=== PATIENT | male | born 1985 | race Caucasian/White ===

== ENCOUNTER 2022-10-27 18:58 | Emergency (ER) | payer SELFPAY ==
[2022-10-27 19:05] VITALS: BP 134/80; PULSE 85; RESP 16; TEMP 37; O2SAT 100
--- NOTE | 2022-10-27 19:25 | ED.HEATRA ---
HPI - Head Injury General Chief complaint: Head Injury Stated complaint: Wound on head Source: patient and RN notes reviewed Mode of arrival: ambulatory Limitations: no limitations History of Present Illness HPI Narrative: 37-year-old male presented for complaint of laceration to the scalp after injury today work. States the injury occurred about 8 hours [employer]. States he was struck by a 4x4 which fell about 8 feet striking him on the head. He denies LOC. States he 'saw stars.' Currently denies headache, dizziness, vision changes, photophobia, nausea, vomiting or confusion. Took ibuprofen. Patient's family member shaved small area surrounding the laceration, and attempted to apply butterfly for wound closure. States while he was at home, he struck the head again on the car muhammad lift. States it started bleeding. Patient reluctant to come for evaluation. No other complaints or concerns. Tetanus UTD. Related Data Home Medications Medication Instructions Recorded Confirmed No Home Medications 10/27/22 10/27/22 Allergies Allergy/AdvReac Type Severity Reaction Status Date / Time No Known Allergies Allergy Mild Verified 10/27/22 19:34 Review of Systems Review of Systems: CONSTITUTIONAL: Denies body aches, fever, chills, or sweats. EYES: Denies visual changes, photophobia ENT: Denies rhinorrhea, epistaxis, congestion, sore throat, or otalgia. CARDIOVASCULAR: Denies chest pain, palpitations, or edema. RESPIRATORY: Denies cough or dyspnea. GASTROINTESTINAL: Denies nausea, vomiting, or diarrhea. GENITOURINARY: Denies dysuria or hematuria. SKIN: report scalp wound MUSCULOSKELETAL: Denies back pain, joint pain, or myalgia. NEUROLOGIC: Endorses mild headache, denies numbness, tingling, weakness, or dizziness All systems reviewed & are unremarkable except as noted in HPI and below PMFSH Past Medical History Medical History (Updated 10/27/22 @ 19:47 by Roula Pizano, JOSH) No pertinent past medical history Comments At time of signature, I have reviewed and agree with nursing past medical, surgical, social and family history unless otherwise noted. Please see nursing chart for further information. There is no relevant family history pertinent to the presenting complaint Exam Narrative: GENERAL: Well-appearing, well-nourished HEAD: 4cm linear laceration to left superior parietal region with contusion/swelling approx 2cm surrounding laceration; Scant active bleeding EYES: PERRLA, EOMI. ENT: Mucous membranes pink and moist. No rhinorrhea. TMs normal bilaterally. NECK: Normal AROM. Supple. no vertebral point tenderness CHEST: No respiratory distress. Clear to auscultation. HEART: Regular rate and rhythm. No murmur appreciated. Normal peripheral pulses. EXTREMITIES: Normal range of motion. SKIN: Warm, dry, no rash. Capillary refill normal. Normal skin turgor. NEURO:No focal deficits. Alert and oriented x3. Intact sensation in face. Hearing intact bilaterally. Shoulder shrug intact. Ambulatory exam with a normal based, steady gait. PSYCH: Normal affect. Course Course Emergency Course: Patient is aware of diagnosis, understands and agrees to treatment plan. Anticipatory guidance given. Patient agrees to follow-up as directed and is aware of reasons to seek care at the emergency department. Portions of this record may have been created with voice recognition software Level of Care: Express Care Visit Vital Signs Vital signs: Vital Signs Temperature 98.6 F 10/27/22 19:05 Pulse Rate 85 10/27/22 19:05 Respiratory Rate 16 10/27/22 19:05 Blood Pressure 134/80 10/27/22 19:05 Pulse Oximetry 100 10/27/22 19:05 Oxygen Delivery Room Air 10/27/22 19:05 Temperature 98.6 F 10/27/22 19:05 Pulse Rate 85 10/27/22 19:05 Respiratory Rate 16 10/27/22 19:05 Blood Pressure 134/80 10/27/22 19:05 Pulse Oximetry 100 10/27/22 19:05 Oxygen Delivery Room Air 10/27/22 19:05
== END 2022-10-27 19:46 | disposition home or self-care (01) ==
PROVIDERS: Emergency Provider Nurse Practitioner Family; PCP Family Medicine
DX: S01.01XA Laceration without foreign body of scalp, initial encounter (principal); W22.8XXA Striking against or struck by other objects, initial encounter; Y99.0 Civilian activity done for income or pay
CPT/HCPCS: 12002; 99213; G0463